=== PATIENT | male | born 1970 | race Caucasian/White ===

== ENCOUNTER 2017-11-04 23:13 | Emergency (ER) | payer MEDICARE, MEDICAID ==
[~2017-11-04] VITALS: Ht 188 cm; Wt 106.0 kg
[2017-11-04 23:22] VITALS: BP 136/89
[2017-11-05] MEDS ORDERED: CARBAMIDE PEROXIDE EAR DROPS 6.5%, 15ML RIGHT EAR ONE
[2017-11-05] MEDS ORDERED: CARBAMIDE PEROXIDE EAR DROPS 6.5%, 15ML ONE (00:08)
== END 2017-11-05 01:39 | disposition home or self-care (01) ==
LOC: ED 23:59
DX: H61.21 Impacted cerumen, right ear (principal)
CPT/HCPCS: 69209; 99283